=== PATIENT | male | born 1990 | race Caucasian/White ===

== ENCOUNTER 2017-03-25 21:59 | Emergency (ER) | payer OTHER ==
[2017-03-25 22:14] VITALS: BP 126/84; PULSE 89; RESP 18; TEMP 98.8; O2SAT 97
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
== END 2017-03-25 23:02 | disposition home or self-care (01) ==
DX: Z77.098 Contact with and (suspected) exposure to other hazardous, chiefly nonmedicinal, chemicals (principal)